=== PATIENT | male | born 1985 | race Caucasian/White ===

== ENCOUNTER 2023-08-29 11:13 | Emergency (ER) | payer MEDICAID ==
[~2023-08-29] VITALS: Ht 182.9 cm; Wt 140.2 kg
[2023-08-29 11:44] VITALS: TEMP 98.5
[2023-08-29] MEDS ORDERED: ketorolac trometh. 30mg/ml inj. IV ONE (12:30)
[2023-08-29] MEDS: metoclopramide 5 mg/ml inj IV ONE (12:51)
[2023-08-29] MEDS: ketorolac tromethamine 15mg/ml inj. IV ONE (12:56)
[2023-08-29] MEDS: diphenhydrAMINE 50 mg/ml inj IV ONE (12:57)
[2023-08-29] MEDS ORDERED: NO HOME MEDS (12:59)
[2023-08-29 13:49] VITALS: BP 126/84; PULSE 93; RESP 17; O2SAT 97
== END 2023-08-29 13:56 | disposition home or self-care (01) ==
LOC: ER 11:14
DX: G43.909 Migraine, unspecified, not intractable, without status migrainosus (principal); R11.0 Nausea; H53.8 Other visual disturbances; E11.9 Type 2 diabetes mellitus without complications
CPT/HCPCS: 70450; 96374; 96375; 99285; J1200; J1885; J2765